=== PATIENT | female | born 1985 | race Two or more races ===

== ENCOUNTER 2018-08-03 09:37 | Emergency (ER) | payer OTHER ==
--- NOTE | 2018-08-03 09:53 | EDPHY ---
H & P Stated Complaint: 12 wks preg; vag bleeding (sees Dr Carranza) Time Seen by Provider: 08/03/18 09:45 HPI/ROS: CHIEF COMPLAINT: Vaginal bleeding HISTORY OF PRESENT ILLNESS: The patient is a at approximately 12 weeks who presents to the ED with vaginal bleeding. She did have some episodic bleeding several weeks ago. She had a ultrasound performed in the office which likely diagnosed a small subchorionic hemorrhage. The patient has had ongoing bleeding today. She contacted her blending machine operator who recommended she come to the emergency department for an ultrasound. The patient denies any headache, visual changes, lightheadedness, abdominal pain, vomiting or diarrhea. She reports that she is Rh positive. REVIEW OF SYSTEMS: A comprehensive 10 point review of systems is otherwise negative aside from elements mentioned in the history of present illness. Source: Patient - Personal History LMP (Females 10-55): EDC: 02/12/19 Current Tetanus Diphtheria and Acellular Pertussis (TDAP): Yes - Medical/Surgical History Other PMH: . hx miscarriage x2. hx ectopic. hx Ab x 2 - Social History Smoking Status: Never smoked - Physical Exam Exam: General Appearance: Alert, no distress Eyes: Pupils equal and round no pallor or injection ENT, Mouth: Mucous membranes moist Respiratory: There are no retractions, lungs are clear to auscultation Cardiovascular: Regular rate and rhythm Gastrointestinal: Abdomen is soft and nontender, no masses, bowel sounds normal Neurological: A&O, normal motor function, normal sensory exam, normal cranial nerves Skin: Warm and dry, no rashes Musculoskeletal: Neck is supple nontender Extremities: symmetrical, full range of motion Constitutional: Initial Vital Signs Temperature (C) 36.6 C 08/03/18 09:38 Heart Rate 77 08/03/18 09:38 Respiratory Rate 18 08/03/18 09:38 Blood Pressure 131/75 H 08/03/18 09:38 O2 Sat (%) 97 08/03/18 09:38 O2 Delivery Mode Room Air Medical Decision Making - Diagnostics Imaging Results: Imaging Impressions Obstetrics Ultrasound 08/03/18 09:57 Impression: 1. Single viable intrauterine gestation with size consistent with LMP dates. 2. FHR = 152 bpm 3. 3.4 cm subchorionic hemorrhage at the lower uterine segment. Results called and discussed with Robin Turner at 08/03/2018 11:15. ED Course/Re-evaluation: Patient presents to the ED for evaluation of vaginal bleeding. The patient was noted to be hemodynamically stable. Patient was taken for a pelvic ultrasound which demonstrates a viable intrauterine and a subchorionic hemorrhage. I re-evaluated the patient at 11:20 a.m. And she reports her bleeding is subsiding. She is not having heavy vaginal bleeding at this point time. She is having no symptoms of orthostasis, hypotension or tachycardia. I spoke with the patient's regular forest technology professor who would like her to follow up in clinic this week. The patient does understand return to the ED should she develop any severe abdominal pain, heavy bleeding, lightheadedness or other concerns. Differential Diagnosis: Differential diagnosis considered includes subchorionic hemorrhage, ectopic , threatened Departure - Departure Disposition: Home, Routine, Self-Care Clinical Impression: Subchorionic hemorrhage in first trimester Condition: Good Instructions: Subchorionic Hemorrhage (ED) Additional Instructions: 1. Please return to the ED for heavy vaginal bleeding, severe abdominal pain, lightheadedness or other concerns. 2. Pelvic rest as discussed in the emergency department. 3. Please follow-up with your forest technology professor this week for recheck. Referrals: Trista Carranza MD [Medical Doctor] - As per Instructions
[2018-08-03 10:45] VITALS: BP 106/68
== END 2018-08-03 11:28 | disposition home or self-care (01) ==
LOC: MERGE 09:37
DX: O20.9 Hemorrhage in early pregnancy, unspecified (principal); Z3A.12 12 weeks gestation of pregnancy

== ENCOUNTER → 2018-08-28 | Outpatient (CLI) | payer OTHER | LOC: MERGE 12:15 → FIMAGING 12:33 | PROVIDERS: ATTEND Hospitalist | PROC: 10903ZU Drainage of Amniotic Fluid, Diagnostic from Products of Conception, Percutaneous Approach (ICD-10-PCS; principal; 2018-08-28) | DX: O28.5 Abnormal chromosomal and genetic finding on antenatal screening of mother (principal); Z3A.16 16 weeks gestation of pregnancy | CPT/HCPCS: 82106-90; 88235-90; 88291-90 ==

== ENCOUNTER 2018-08-29 13:31 | Observation (INO) | payer OTHER ==
--- NOTE | 2018-08-29 16:46 | SOAPPROG ---
SOAP Progress Note Assessment/Plan: Assessment: 33 yo at 16w1d with brown liquid discharge from her vaginal , suspect liquefying subchorionic hemorrhage s/p amniocentesis for genetics with [facility] yesterday (08/28/18), as had Innatal with 47XXY risk. Concern for poor prognosis with history and temporary low FHR today. Plan: After consultation with [facility], Dr. Isabel Day, who performed amniocentesis , bruno dc pt home. Per Dr. Day's recommendations: 1) modified bedrest for the next 48 hours. 2) FU with [facility] on Saturday09/01/18 - instructed to call Saturday morning if has not received a call from [facility] Scheduling 3) Precautions reviewed - bleeding, ssx of infection, PPROM. Pt is aware that she is at high risk for both of these things. Instructed to check temp 2-3x/day , and call if > 100.4 and come in. Lissy Johnson MD, FACOG [facility] 08/29/18 16:51 Subjective: Pt doing well, having intermittent nonpainful contractions. Called in as leaked a large amount of brown fluid, similar to that seen during amniocentesis the day before. Dr. Day recommended evaluation. Fluid leakage is different than the brown / dark red mucous discharge she has seen, as has known subchorionic hemorrhage. Leakage today was more watery than thick. Occasional cramp. NO abdominal pain. No fevers. Objective: VSS afebrile. Sterile speculum exam: no lesions in the vagina. Cervix appears long and closed , and has a thick dark brown mucousy clot coming through the os. Observed for at least 2 minutes, and instructed to cough twice, and there was no fluid coming through the cervical os. Abd US performed - Initally, for about the first 10 seconds, the heart rate was quite slow - about 50 bpm, but then immediately increased, and was 150s - 160s consistently for the next 10 minutes of observing with the ultrasound. Active fetus, cephalic. Minimal fluid around vertex, but large amount around legs. MVP 3.35 cm. Anterior placenta, though appears to have an area posteriorly and over cervix c/w subchorionic hemorrhage. - Time Spent With Patient Time Spent With Patient: 30 min - Pending Discharge Pending Discharge Within 24 Hours: Yes Pending Discharge Within 48 Hours: Yes Pending Discharge Date: 08/31/18 Pending Discharge Time: 11:00 Physical Exam - Physical Exam General Appearance: WD/WN, alert, no apparent distress EENT: PERRL/EOMI Neck: non-tender Abdomen: other (gravid to 16 wk, nontender to palpation) Back: Normal inspection Skin: normal color, warm/dry Lymphatic: no adenopathy Extremities: normal range of motion Neuro/Psych: alert, normal mood/affect, oriented x 3 ICD10 Worksheet Patient Problems: Problems Problem Status Onset Vaginal bleeding during , antepartum Acute - ICD10 Problem Qualifiers (1) Vaginal bleeding during , antepartum
== END 2018-08-29 16:55 | disposition home or self-care (01) ==
LOC: FLD 13:31
PROVIDERS: ADMIT Hospitalist; ATTEND Hospitalist
DX: Z03.89 Encounter for observation for other suspected diseases and conditions ruled out (principal)
CPT/HCPCS: 76815; 76818; G0378

== ENCOUNTER → 2018-09-01 | Outpatient (CLI) | payer OTHER | LOC: FIMAGING 13:20 | PROVIDERS: ATTEND Hospitalist | DX: O20.8 Other hemorrhage in early pregnancy (principal); Z3A.16 16 weeks gestation of pregnancy ==